=== PATIENT | female | born 1990 | race Caucasian/White ===

== ENCOUNTER 2020-06-15 14:14 | Emergency (ER) | payer OTHER ==
[2020-06-15 14:32] VITALS: BP 131/83; PULSE 98; RESP 18; TEMP 99
--- NOTE | 2020-06-15 15:28 | US ---
EXAMINATION TYPE: US venous doppler duplex LE RT DATE OF EXAM: 06/15/2020 3:20 PM COMPARISON: NONE CLINICAL HISTORY: pain, swelling, cramping. Swelling right ankle, pt is 29 weeks , no known p rior DVT SIDE PERFORMED: Right TECHNIQUE: The lower extremity deep venous system is examined utilizing real time linear array sonog donna with graded compression, doppler sonography and color-flow sonography. VESSELS IMAGED: Common Femoral Vein Deep Femoral Vein Greater Saphenous Vein * Femoral Vein Popliteal Vein Small Saphenous Vein * Proximal Calf Veins (* superficial vessels) Right Leg: Negative for DVT IMPRESSION: 1. No deep venous thrombosis right lower extremity ultrasound.
--- NOTE | 2020-06-15 15:39 | ED ---
Lower Extremity Injury HPI - General Chief Complaint: Extremity Injury, Lower Stated Complaint: Foot/Ankle Pain-29 wks Time Seen by Provider: 06/15/20 14:36 Source: patient Mode of arrival: ambulatory Limitations: no limitations - History of Present Illness Initial Comments: Patient is a 30-year-old female, currently 29 weeks , presenting to the emergency Department with complaints of swelling in her right ankle. Patient states she has been dealing with bilateral lower leg swelling on and off for the past few weeks as well as some cramping at night time however yesterday and today she noticed more swelling of her right ankle, some pain in her right calf as well as some intermittent numbness. Patient states she spoke with her FOOD TECHNOLOGY TEACHER who recommended she come in to rule out a DVT. Patient denies any chest pain, shortness of breath, cough. She denies history of blood clots. Patient's has been uncooperative as far. She has no further complaints. - Related Data Allergies Allergy/AdvReac Type Severity Reaction Status Date / Time Penicillins Allergy Rash/Hives Verified 06/15/20 14:27 Review of Systems ROS Statement: Those systems with pertinent positive or pertinent negative responses have been documented in the HPI. ROS Other: All systems not noted in ROS Statement are negative. Past Medical History Past Medical History: No Reported History History of Any Multi-Drug Resistant Organisms: None Reported Past Surgical History: No Surgical Hx Reported Past Psychological History: No Psychological Hx Reported Smoking Status: Never smoker Past Alcohol Use History: None Reported Past Drug Use History: None Reported General Exam - General Exam Comments Initial Comments: GENERAL: Patient is well-developed and well-nourished. Patient is nontoxic and in no acute distress. HEAD: Atraumatic, normocephalic. EYES: Pupils equal round and reactive to light, extraocular movements intact, sclera anicteric, conjunctiva are normal. Eyelids were unremarkable. ENT: TMs normal, nares patent, oropharynx clear without exudates. Moist mucous membranes. NECK: Normal range of motion, supple without lymphadenopathy or JVD. LUNGS: Unlabored respirations. Breath sounds clear to auscultation bilaterally and equal. No wheezes rales or rhonchi. HEART: Regular rate and rhythm without murmurs, rubs or gallops. ABDOMEN: Soft, nontender, normoactive bowel sounds. No guarding, no rebound. No masses appreciated. : Deferred MUSCULOSKELETAL: Normal extremities with adequate strength and normal range of motion, no pitting or edema. No clubbing or cyanosis. Very mild swelling of the right ankle compared to left, neurovascular intact. No erythema, no pain with palpation of the right lower leg or ankle. NEUROLOGICAL: Patient is alert and oriented x 3. Motor and sensory are also intact. Cranial nerves II through XII grossly intact. Symmetrical smile. Normal speech, normal gait. PSYCH: Normal mood, normal affect. SKIN: Warm, Dry, normal turgor, no rashes or lesions noted. Limitations: no limitations Course Vital Signs 06/15/20 14:27 Temperature 99 F Pulse Rate 98 Respiratory 18 Rate Blood Pressure 131/83 O2 Sat by Pulse 98 Oximetry Medical Decision Making - Medical Decision Making Patient is a 30-year-old female, currently 29 weeks , presenting to rule out a DVT of her right lower extremity secondary to swelling, some intermittent numbness. Her exam is unremarkable, neurovascular intact. Ultrasound of the right lower extremity reveals no evidence of DVT. Discussed this with the patient. She can continue with elevation above the heart level, compression stockings as well as ankle pumps. Patient is in agreement with this plan of care. She stable for discharge. Return parameters were discussed with the patient and she verbalized understanding. Disposition Clinical Impression: Bilateral lower extremity edema Disposition: HOME SELF-CARE Condition: Stable Instructions (If sedation given, give patient instructions): Leg Edema (ED) Additional Instructions: Please return to the Emergency Department if symptoms worsen or any other concerns. US today is negative for DVT's. Elevate above the heart level, trial of compression stockings while working. Follow-up with your FOOD TECHNOLOGY TEACHER. Is patient prescribed a controlled substance at d/c from ED?: No Referrals: None,Stated [Primary Care Provider] - 1-2 days
== END 2020-06-15 15:43 | disposition home or self-care (01) ==
LOC: EC 14:14
DX: O12.03 Gestational edema, third trimester (principal); Z88.0 Allergy status to penicillin; Z3A.29 29 weeks gestation of pregnancy
CPT/HCPCS: 99283

== ENCOUNTER → 2024-07-04 | Outpatient (CLI) | payer OTHER ==
--- NOTE | 2024-07-04 15:28 | US ---
EXAMINATION TYPE: US axilla RT DATE OF EXAM: 07/04/2024 COMPARISON: NONE CLINICAL INDICATION: Female, 34 years old with history of R22.31 Lump of right axilla; lump in right axilla x 1 month TECHNIQUE: Right axilla scanned with grayscale and color Doppler imaging. FINDINGS: Multiple lymph nodes seen. The cortex appear wnl. No organizing fluid collection or mass. IMPRESSION: Area of concern in the right axilla Spectra present a normal appearing lymph node. Consi gen evaluation with complete progression workup with mammography. [facility], , 07/04/2024 3:26 PM
== END | disposition home or self-care (01) ==
LOC: RADUSWWP 14:01
PROVIDERS: ATTEND Family Medicine
DX: R22.31 Localized swelling, mass and lump, right upper limb (principal)